=== PATIENT | female | born 1980 ===

== ENCOUNTER → 2018-03-16 | Outpatient (CLI) | payer SELFPAY ==
[2018-03-19 10:32] LABS: HPV Genotype 16 Not Detected (NOTDET); HPV Genotype 18 Detected (NOTDET)
[2018-03-19 12:48] LABS: HPV High Risk Other Detected (NOTDET)
== END ==
LOC: LAB 17:26 → LAB SHORT 17:26
PROVIDERS: Registered Nurse Community Health
DX: Z12.4 Encounter for screening for malignant neoplasm of cervix (principal)
CPT/HCPCS: 87624; G0123

== ENCOUNTER → 2018-06-09 | Outpatient (CLI) | payer SELFPAY | LOC: PLD 08:46 → LAB SHORT 08:46 | DX: R87.618 Other abnormal cytological findings on specimens from cervix uteri (principal) | CPT/HCPCS: 88305 ==